=== PATIENT | female | born 1990 | race American Indian/Alaskan Native ===

== ENCOUNTER 2016-12-07 08:45 | Inpatient (IN) | payer MEDICAID ==
--- NOTE | 2016-12-07 10:26 | History and Physical Report ---
<DARYL CALDERÓN G - Last Filed: 12/07/16 17:34> History of Present Illness Date of admission: 12/07/16 08:45 Chief complaint: Presents for scheduled induction of labor due to IUGR History of present illness: Early entry to care, course complicated by IUGR co-managed with [facility]. Past History Past Medical History: hematologic disorders (anemia, Blood transfusion in 2008) Past Surgical History: no surgical history Family/Genetic History: diabetes (MGM and Aunt) Social history: no significant social history, single - Obstetrical History Expected Date of Delivery: 12/18/16 Actual Gestation: 38 Week(s) 3 Day(s) Para: 1 Hx # Term Pregnancies: 1 Number of Living Children: 1 #1 Gender: Male year: Birthweight: 3.43 kg Method of Delivery: Vaginal Gestational age at delivery: 39 Complications: none Medications and Allergies Allergies Allergy/AdvReac Type Severity Reaction Status Date / Time No Known Allergies Allergy Verified 12/07/16 10:46 Active Meds: Active Medications Butorphanol Tartrate (Stadol) 2 mg IV Q2H PRN PRN Reason: Pain , Severe (7-10) Ephedrine Sulfate (Ephedrine Sulfate) 10 mg IV Q2M PRN PRN Reason: Hypotension Stop: 12/08/16 10:59 Fentanyl (Sublimaze) 100 mcg IV Q2H PRN PRN Reason: Labor Pain Ampicillin Sodium (Polycillin/Ns 1 Gm/50 Ml) 1 gm in 50 mls @ 100 mls/hr IV Q4H URBANO PRN Reason: Protocol Last Admin: 12/07/16 16:14 Dose: 100 mls/hr Lactated Ringer's (Lactated Ringers) 1,000 mls @ 125 mls/hr IV DIRECT URBANO Last Admin: 12/07/16 11:21 Dose: 125 mls/hr Oxytocin/Sodium Chloride (Pitocin/Ns 20 Unit/1000ml Drip) 20 units in 1,000 mls @ 125 mls/hr IV DIRECT URBANO Oxytocin/Sodium Chloride (Pitocin/Ns 30 Unit/500ml) 30 units in 500 mls @ 4 mls /hr IV TITR URBANO PRN Reason: Protocol Oxytocin/Sodium Chloride (Pitocin/Ns 30 Unit/500ml) 30 units in 500 mls @ 1 mls /hr IV TITR URBANO; 1 MILLIUNITS/MIN PRN Reason: Protocol Mineral Oil (Mineral Oil) 30 ml PO QHS PRN PRN Reason: Constipation Naloxone HCl (Narcan 0.4 Mg/1 Ml) 0.1 mg IV Q2MIN PRN PRN Reason: Res Rate </= 8 or 02 SAT < 92% Review of Systems All systems: negative - Vital Signs Vital signs: Vital Signs Pulse BP 110 H 121/68 12/07/16 09:12 12/07/16 09:12 Temp Pulse Resp BP Pulse Ox 97.7 F 98 H 16 121/68 96 12/07/16 09:18 12/07/16 17:32 12/07/16 09:18 12/07/16 09:18 12/07/16 17:32 - Physical Exam Breasts: Positive: normal Cardiovascular: Regular rate Lungs: Positive: Clear to auscultation Abdomen: Positive: normal appearance Genitourinary (Female): Positive: normal external genitalia, normal perenium Uterus: Positive: enlarged Anus/Rectum: Positive: normal perianal skin - Obstetrical FHR: category 2 FHR comments: FHR: 150, moderate varability, +accels, +isolated decels Uterine Contraction Monitor Mode: External Cervical Dilatation: 0 Uterine Contraction Pattern: Irregular Uterine Tone Measurement Phase: Resting Uterine Contraction Intensity: Mild Results Result Diagrams: 12/07/16 13:36 Abnormal lab results 12/07/16 Range/Units 13:36 RBC 3.39 L (3.65-5.03) M/mm3 All other labs normal. Assessment and Plan A: IUP @38 3/7 Weeks Category II Tracing IUGR GBS Positive P: Admit to L&D per routine orders Remove Cervidil Start low-dose Pitocin GBS Prophylaxis <CINTHYA DE LA ROSA - Last Filed: 12/07/16 19:38> History of Present Illness Date of examination: 12/07/16 Date of admission: 12/07/16 08:45 Chief complaint: Induction of labor History of present illness: Pt is a 26yo BF Past History - Obstetrical History : 2 - Vital Signs Vital signs: Vital Signs Pulse BP 110 H 121/68 12/07/16 09:12 12/07/16 09:12 Temp Pulse Resp BP Pulse Ox 97.7 F 110 H 16 121/68 12/07/16 09:18 12/07/16 09:18 12/07/16 09:18 12/07/16 09:18 Results Result Diagrams: 12/07/16 13:36 All other labs normal.
[2016-12-07] MEDS ORDERED: XYLOCAINE 2% INFILTRATI ONE (11:00)
[2016-12-07] MEDS ORDERED: BRETHINE IVP PRN (11:00)
[2016-12-07] MEDS ORDERED: SUBLIMAZE IV PRN (11:00)
[2016-12-07] MEDS ORDERED: ePHEDrine SULFATE IV PRN (11:00)
[2016-12-07] MEDS ORDERED: PITOCin/NS 20 UNIT/1000ML DRIP 20 UNITS/1,000 ML BAG IV SCH (11:00)
[2016-12-07] MEDS ORDERED: BRETHINE SUB-Q PRN (11:00)
[2016-12-07] MEDS ORDERED: NARCAN 0.4 MG/1 ML IV PRN (11:00)
[2016-12-07] MEDS ORDERED: PITOCin/NS 30 UNIT/500ML 30 UNITS/500 ML BAG IV SCH ×2 (11:00)
[2016-12-07] MEDS ORDERED: MINERAL OIL PO PRN (11:00)
[2016-12-07] MEDS ORDERED: POLYCILLIN/NS 2 GM/100 ML 2 GM/100 ML BAG IV ONE (11:00)
[2016-12-07] MEDS ORDERED: STADOL IV PRN (11:00)
[2016-12-07] MEDS: LACTATED RINGERS 1,000 ML IV SCH ×3 (11:21→23:34)
[2016-12-07] MEDS ORDERED: CERVIDIL VG ONE (11:30)
[2016-12-07 14:04] LABS: Hematocrit 30.5 % (30.3-42.9); Hemoglobin 10.3 gm/dl (10.1-14.3); Mean Corpuscular HGB Conc 34 % (30-34); Mean Corpuscular Hemoglobin 30 pg (28-32); Mean Corpuscular Volume 90 fl (79-97); Platelet Count 194 K/mm3 (140-440); Red Blood Count 3.39 M/mm3 (3.65-5.03); Red Cell Distribution Width 13.2 % (13.2-15.2); White Blood Count 7.8 K/mm3 (4.5-11.0)
[2016-12-07] MEDS: POLYCILLIN/NS 1 GM/50 ML 1 GM/50 ML BAG IV SCH ×3 (16:14→23:54)
[2016-12-08] MEDS: LACTATED RINGERS 1,000 ML IV SCH ×2 (02:48→03:58)
[2016-12-08] MEDS ORDERED: fentaNYL-BUPIV 2 MCG/ML-0.125% 200 MCG/100 ML BAG EPIDURAL ONE (03:03)
[2016-12-08] MEDS: POLYCILLIN/NS 1 GM/50 ML 1 GM/50 ML BAG IV SCH (03:46)
--- NOTE | 2016-12-08 03:52 | Progress Note ---
Assessment and Plan A: IUP @38 4/7 Weeks Category II Tracing IUGR GBS Positive P: AROM Continue Pitocin Augmentation Continue GBS Prophylaxis Subjective - Subjective Date of service: 12/08/16 Interval history: Early entry to care, course complicated by IUGR co-managed with [facility]. Patient reports: other (Resting well under epidural) Objective - Vital Signs Vital Signs: Vital Signs - 12hr 12/07/16 12/07/16 12/07/16 17:21 17:26 17:27 Temperature Pulse Rate 116 H 105 H 98 H Respiratory Rate Blood Pressure O2 Sat by Pulse 96 98 94 Oximetry 12/07/16 12/07/16 12/07/16 17:32 17:37 17:41 Temperature Pulse Rate 98 H 98 H 102 H Respiratory Rate Blood Pressure O2 Sat by Pulse 96 95 95 Oximetry 12/07/16 12/07/16 12/07/16 17:42 17:47 17:49 Temperature Pulse Rate 102 H 101 H 96 H Respiratory Rate Blood Pressure O2 Sat by Pulse 94 95 83 L Oximetry 12/07/16 12/07/16 12/07/16 17:52 19:07 19:11 Temperature 98.2 F Pulse Rate 93 H 95 H 100 H Respiratory 18 Rate Blood Pressure 122/74 122/74 O2 Sat by Pulse 98 99 99 Oximetry 12/07/16 12/07/16 12/07/16 19:12 19:17 19:22 Temperature Pulse Rate 102 H 100 H 102 H Respiratory Rate Blood Pressure O2 Sat by Pulse 99 99 99 Oximetry 12/07/16 12/07/16 12/07/16 19:25 23:30 23:35 Temperature 98.4 F Pulse Rate 116 H 108 H 108 H Respiratory 18 Rate Blood Pressure 105/57 105/57 O2 Sat by Pulse 88 98 98 Oximetry 12/08/16 12/08/16 12/08/16 02:37 02:42 02:47 Temperature Pulse Rate 108 H 109 H 108 H Respiratory Rate Blood Pressure O2 Sat by Pulse 100 99 100 Oximetry 12/08/16 12/08/16 12/08/16 02:54 02:59 03:05 Temperature Pulse Rate 88 105 H 112 H Respiratory Rate Blood Pressure 108/67 106/66 134/91 O2 Sat by Pulse Oximetry 12/08/16 12/08/16 12/08/16 03:07 03:08 03:10 Temperature Pulse Rate 114 H 110 H 113 H Respiratory Rate Blood Pressure 133/86 132/82 O2 Sat by Pulse 100 Oximetry 12/08/16 12/08/16 12/08/16 03:12 03:14 03:16 Temperature Pulse Rate 120 H 112 H 112 H Respiratory Rate Blood Pressure 129/86 126/79 127/82 O2 Sat by Pulse 100 Oximetry 12/08/16 12/08/16 12/08/16 03:17 03:18 03:20 Temperature Pulse Rate 114 H 106 H 70 Respiratory Rate Blood Pressure 131/84 132/84 O2 Sat by Pulse 100 Oximetry 12/08/16 12/08/16 12/08/16 03:25 03:30 03:34 Temperature Pulse Rate 111 H 100 H 94 H Respiratory Rate Blood Pressure 128/76 115/75 113/80 O2 Sat by Pulse Oximetry 12/08/16 12/08/16 03:39 03:44 Temperature Pulse Rate 93 H 89 Respiratory Rate Blood Pressure 124/82 109/80 O2 Sat by Pulse Oximetry - Exam Breasts: normal Cardiovascular: Regular rate Lungs: Clear to auscultation, Normal air movement Abdomen: Present: normal appearance, soft, normal bowel sounds FHR: category 2 FHR comments: FHR: 148, moderate varability,-accels, +isolated varabile and early decels Uterine Contraction Monitor Mode: External Cervical Dilatation: 6 (moderate amount of clear fluid upon AROM at 0330) Cervical Effacement Percentage: 90 station: -1 Uterine Contraction Pattern: Irregular Uterine Tone Measurement Phase: Resting Uterine Contraction Intensity: Mild Extremities: normal - Labs Labs: Abnormal Labs 12/07/16 13:36 RBC 3.39 L Laboratory Results - last 24 hr 12/07/16 12/07/16 13:34 13:36 WBC 7.8 RBC 3.39 L Hgb 10.3 Hct 30.5 MCV 90 MCH 30 MCHC 34 RDW 13.2 Plt Count 194 Blood Type A POSITIVE Antibody Screen Negative
--- NOTE | 2016-12-08 03:58 | Anesthesia Consultation ---
Anesthesia Consult and Med Hx Date of service: 12/08/16 - Airway Anesthetic Teeth Evaluation: Good ROM Head & Neck: Adequate Mental/Hyoid Distance: Adequate Intubation Access Assessment: Probably Good - Pre-Operative Health Status ASA Pre-Surgery Classification: ASA2, Emergency Proposed Anesthetic Plan: Epidural, Spinal - Pulmonary Hx Asthma: No COPD: No Hx Pneumonia: No - Cardiovascular System Hx Hypertension: No - Central Nervous System Hx Seizures: No Hx Psychiatric Problems: No - Endocrine Hx Renal Disease: No Hx End Stage Renal Disease: No Hx Hypothyroidism: No Hx Hyperthyroidism: No - Hematic Hx Anemia: No Hx Sickle Cell Disease: No - Other Systems Hx Alcohol Use: No
[2016-12-08] MEDS ORDERED: fentaNYL-BUPIV 2 MCG/ML-0.125% 200 MCG/100 ML BAG EPIDURAL SCH (04:00)
[2016-12-08] MEDS ORDERED: XYLOCAINE MPF 2% ONE (04:15)
[2016-12-08] MEDS ORDERED: DULCOLAX PR PRN (07:03)
[2016-12-08] MEDS ORDERED: TUCKS PAD TP PRN (07:03)
[2016-12-08] MEDS ORDERED: PHENERGAN PR PRN (07:03)
[2016-12-08] MEDS ORDERED: NORCO 5/325 PO PRN (07:03)
[2016-12-08] MEDS ORDERED: PHENERGAN PO PRN (07:03)
[2016-12-08] MEDS ORDERED: LANSINOH TP PRN (07:03)
[2016-12-08] MEDS ORDERED: ZOFRAN IV PRN (07:03)
[2016-12-08] MEDS ORDERED: BENADRYL PO PRN (07:03)
[2016-12-08] MEDS ORDERED: MILK OF MAGNESIA PO PRN (07:03)
--- NOTE | 2016-12-08 07:19 | Procedure Note ---
OB Delivery Note - Delivery Date of Delivery: 12/08/16 (512) Surgeon: DARYL RAGLAND Estimated blood loss: 200cc - Vaginal Delivery presentation: vertex Delivery position: OA Intrapartum events: mult.variable deceleratio Delivery induction: cervidil Delivery augmentation: rupture of membranes, pitocin Delivery monitor: external FHT, external uterine Route of delivery: Delivery placenta: spontaneous Delivery cord: 3 umbilical vessels Episiotomy: none Delivery laceration: none Anesthesia: epidural Delivery comments: of a live female over a intact perineum under epidural anesthesia with Apgars of 8,1,1,0 at 512 on 12/08/2016. Spontaneous crying at , infant well-flexed and placed on the mother's abdomen; Very short cord. After 2 -3 minutes on the abdomen, infant started to appear paler, and floppy, and was not crying as vigorously. Cord cut and clamped by SHABANA Ragland, and placed on warmer; code pink called. NICU responded immediately and full code started. Spontaneous delivery of placenta complete and intact with Gonzalez side presenting. Fundus is firm and midline located 4 below the U. Lochia is scant. Attempted to collect cord blood gasses x 2, but only venous could be collected due to low blood volume in cord. Placenta to pathology. GBS prophylaxis x 4. Infant pronounced . Multiple family members present; Mother and family very tearful and in deep shock and grief. - Infant A at 1 minute: 8 at 5 minutes: 1 ( 1 at 10 minutes; ) Infant Gender: Female
[2016-12-08] MEDS ORDERED: SODIUM CHLORIDE FLUSH SYRINGE 10 ML IV NR (08:00)
[2016-12-08] MEDS ORDERED: MOTRIN PO SCH (08:00)
--- NOTE | 2016-12-08 17:26 | Progress Note ---
Assessment and Plan A: Day of Delivery Unexpected Demise P: Follow Routine orders D/C home today per patient request RTO in 2 Weeks Subjective - Subjective Date of service: 12/08/16 Interval history: Early entry to care, course complicated by IUGR co-managed with [facility]. Patient reports: appetite normal, voiding normally, pain well controlled, flatus , ambulating normally : Objective - Vital Signs Latest vital signs: Vital Signs Temp Pulse Resp BP Pulse Ox 12/08/16 11:30 98.8 F 96 H 18 120/72 12/08/16 11:16 99 H 82 L 12/08/16 11:08 103 H 81 L 12/08/16 11:00 64 84 12/08/16 10:47 82 L 12/08/16 10:39 80 L 12/08/16 10:32 82 L 12/08/16 10:25 75 83 L 12/08/16 10:05 82 L 12/08/16 09:05 65 0 L 12/08/16 08:31 81 L 12/08/16 08:06 82 L 12/08/16 07:59 70 85 12/08/16 07:40 100 H 119/71 12/08/16 07:16 61 80 L 12/08/16 07:06 114 H 118/75 76 L 12/08/16 06:40 25 L 89 12/08/16 06:39 76 L 12/08/16 06:31 109 H 100 12/08/16 06:26 107 H 99 12/08/16 06:25 107 H 117/65 12/08/16 06:21 101 H 100 12/08/16 06:16 109 H 99 12/08/16 06:11 108 H 99 12/08/16 06:10 105 H 119/67 12/08/16 06:06 105 H 100 12/08/16 06:01 112 H 100 12/08/16 05:56 110 H 100 12/08/16 05:55 109 H 120/64 12/08/16 05:51 109 H 100 12/08/16 05:46 110 H 99 12/08/16 05:41 109 H 100 12/08/16 05:40 108 H 121/64 12/08/16 05:36 113 H 100 12/08/16 05:31 114 H 100 12/08/16 05:26 116 H 100 12/08/16 05:25 118 H 125/63 12/08/16 05:21 120 H 100 12/08/16 05:16 116 H 100 12/08/16 05:11 147 H 100 12/08/16 05:10 155 H 118/59 12/08/16 05:06 121 H 100 12/08/16 05:01 109 H 100 12/08/16 04:56 104 H 100 12/08/16 04:55 95 H 105/61 12/08/16 04:51 84 100 12/08/16 04:46 100 H 100 12/08/16 04:41 100 H 100 12/08/16 04:40 105 H 99/58 12/08/16 04:36 100 H 100 12/08/16 04:31 103 H 100 12/08/16 04:26 102 H 100 12/08/16 04:25 101 H 104/59 12/08/16 04:21 97 H 100 12/08/16 04:17 99 H 102/69 12/08/16 04:16 95 H 100 12/08/16 04:11 102 H 100 12/08/16 04:09 101 H 131/92 12/08/16 04:06 113 H 100 12/08/16 04:05 100 H 111/81 12/08/16 04:01 99 H 100 12/08/16 03:58 99 H 112/85 12/08/16 03:53 93 H 110/83 12/08/16 03:48 101 H 110/80 12/08/16 03:44 89 109/80 12/08/16 03:39 93 H 124/82 12/08/16 03:34 94 H 113/80 12/08/16 03:30 100 H 115/75 12/08/16 03:25 111 H 128/76 12/08/16 03:20 70 132/84 12/08/16 03:18 106 H 131/84 12/08/16 03:17 114 H 100 12/08/16 03:16 112 H 127/82 12/08/16 03:14 112 H 126/79 12/08/16 03:12 120 H 129/86 100 12/08/16 03:10 113 H 132/82 12/08/16 03:08 110 H 133/86 12/08/16 03:07 114 H 100 12/08/16 03:05 112 H 134/91 12/08/16 02:59 105 H 106/66 12/08/16 02:54 88 108/67 12/08/16 02:47 108 H 100 12/08/16 02:42 109 H 99 12/08/16 02:37 108 H 100 12/07/16 23:35 108 H 105/57 98 12/07/16 23:30 98.4 F 108 H 18 105/57 98 12/07/16 19:25 116 H 88 12/07/16 19:22 102 H 99 12/07/16 19:17 100 H 99 12/07/16 19:12 102 H 99 12/07/16 19:11 98.2 F 100 H 18 122/74 99 12/07/16 19:07 95 H 122/74 99 12/07/16 17:52 93 H 98 12/07/16 17:49 96 H 83 L 12/07/16 17:47 101 H 95 12/07/16 17:42 102 H 94 12/07/16 17:41 102 H 95 12/07/16 17:37 98 H 95 12/07/16 17:32 98 H 96 12/07/16 17:27 98 H 94 12/07/16 17:26 105 H 98 Intake and Output 12/08/16 12/08/16 12/08/16 06:59 14:59 22:59 Intake Total 3050 120 Balance 3050 120 Intake: IV 3050 Lactated Ringers 1,000 ml 3000 @ 125 mls/hr IV DIRECT URBANO Rx#:[id number] POLYCILLIN/NS 1 GM/50 ML 50 1 gm In 50 ml @ 100 mls/ hr IV Q4H URBANO Rx#: [id number] Oral 120 Other: Total, Intake Amount 120 # Voids Void 2 2 Estimated Blood Loss 200 - Exam Breasts: Present: normal Cardiovascular: Present: Regular rate Lungs: Present: Clear to auscultation, Normal air movement Abdomen: Present: normal appearance, soft, normal bowel sounds Uterus: Present: normal, firm, fundal height below umbilicus Extremities: Present: normal
--- NOTE | 2016-12-08 17:27 | Discharge Summary ---
Providers - Providers Date of Admission: 12/07/16 08:45 Date of discharge: 12/08/16 Attending physician: CINTHYA IZAGUIRRE MD Primary care physician: CINTHYA IZAGUIRRE MD Hospitalization Reason for admission: induction of labor Delivery: Episiotomy: none Laceration: none Other procedures: none complications: none Discharge diagnosis: intrapartum demise baby: female Condition at discharge: Good Disposition: DC-01 TO HOME OR SELFCARE Plan - Provider Discharge Summary Activity: routine, no sex for 6 weeks, no heavy lifting 4 weeks, no strenuous exercise Diet: routine Instructions: routine Additional instructions: [] Smoking cessation referral if applicable(refer to patient education folder for contact #) [] Refer to [facility] Booklet Call your doctor immediately for: * Fever > 100.5 * Heavy vaginal bleeding ( >1 pad per hour) * Severe persistent headache * Shortness of breath * Reddened, hot, painful area to leg or breast * Drainage or odor from incision. * Keep incision clean and dry at all times and follow doctor's instructions regarding bathing/showering - Follow up plan Follow up: MAYELA RÍOS CNM [Advanced Practice Nurse] - 14 Days
[2016-12-08 18:15] VITALS: BP 96/60
[2016-12-08 18:27] LABS: Hematocrit 33.9 % (30.3-42.9); Hemoglobin 11.2 gm/dl (10.1-14.3)
== END 2016-12-08 18:30 | disposition home or self-care (01) | DRG 775 ==
LOC: LD 08:45 → OB 12-08 11:48
PROVIDERS: ADMIT Obstetrics & Gynecology; ATTEND Obstetrics & Gynecology
PROC: 10E0XZZ Delivery of Products of Conception, External Approach (ICD-10-PCS; principal; 2016-12-08)
PROC: 00HU33Z Insertion of Infusion Device into Spinal Canal, Percutaneous Approach (ICD-10-PCS; 2016-12-08)
PROC: 3E0R3CZ (ICD-10-PCS; 2016-12-08)
PROC: 3E0P7GC Introduction of Other Therapeutic Substance into Female Reproductive, Via Natural or Artificial Opening (ICD-10-PCS; 2016-12-08)
DX: O36.4XX0 Maternal care for intrauterine death, not applicable or unspecified (principal); O36.5930 Maternal care for other known or suspected poor fetal growth, third trimester, not applicable or unspecified; O76 Abnormality in fetal heart rate and rhythm complicating labor and delivery; O99.824 Streptococcus B carrier state complicating childbirth; O69.3XX0 Labor and delivery complicated by short cord, not applicable or unspecified; Z3A.38 38 weeks gestation of pregnancy; Z37.1 Single stillbirth
CPT/HCPCS: 36415; 59200; 85014; 85018; 85027; 86850; 86900; 86901; 88307; J0290; J2590; J3010; J7120